=== PATIENT | female | born 1945 | race Caucasian/White ===

== ENCOUNTER 2019-11-26 07:26 | Day surgery (SDC) | payer OTHER ==
--- OUTSIDE RECORDS SUMMARY | 2019-11-26 07:29 | XMS REPORT | Clinical Summary ---
:1945 Author Organization [facility] Address [address] [place] [address] Care Team Providers Name Role Phone Asked, Pcp Primary Care Provider Unavailable Allergies No Known Active Allergies Medications Medication Sig Dispensed Refills Start Date End Date Status rosuvastatin (CRESTOR) Take 10 mg by 0 Active 10 MG tablet mouth daily. Active Problems Problem Noted Date Polyp of colon 03/15/2016 Social History Tobacco Use Types Packs/Day Years Used Date Never Smoker Alcohol Use Drinks/Week oz/Week Comments No Sex Assigned at Date Recorded Not on file Last Filed Vital Signs Not on file Plan of Treatment Health Maintenance Due Date Last Done Comments BREAST CANCER SCREENING 1996 COLONOSCOPY SCREENING 1996 SHINGLES VACCINES (#1) 1996 65+ PNEUMOCOCCAL VACCINE (1 of 1 - PPSV23) 05/22/2011 INFLUENZA VACCINE 09/18/2019 Results Not on fileafter 11/25/2018 Insurance Payer Benefit Plan / Subscriber ID Effective Phone Address T ype Group Dates MEDICARE MEDICARE PART [id number] 2011-Dimas Mueller X Medicare A AND B nt M[employer] OF [employer] OF [id number] 2015-Pres James REEDER ent Advance Directives For more information, please contact: [phone] Type Date 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
[2019-11-26] MEDS ORDERED: KETOROLAC 30 MG/ML INJ ONE (07:45)
[2019-11-26] MEDS ORDERED: LIDOCAINE 2% MPF 5 ML VIAL ONE (07:45)
[2019-11-26] MEDS ORDERED: ONDANSETRON 4 MG/2 ML VIAL ONE (07:45)
[2019-11-26] MEDS ORDERED: propofoL 200 MG/20 ML VIAL IV ONE (07:45)
[2019-11-26] MEDS ORDERED: FENTANYL CITR 100 MCG/2 ML ONE (07:45)
[2019-11-26] MEDS ORDERED: dexAMETHasone 4 MG/ML VIAL ONE (07:46)
[2019-11-26] MEDS ORDERED: ROCURONIUM 50 MG/5 ML VIAL IV ONE (07:46)
[2019-11-26] MEDS ORDERED: GLYCOPYRROLATE 0.2 MG/ML SYR ONE ×2 (07:46→10:39)
[2019-11-26] MEDS: BUPIVACA 0.25%/EPI 0.0005% MDV 50 ML VIAL ONE ×2 (07:50→08:27)
[2019-11-26] MEDS: Ringers Lactate 1,000 ML IV ONE ×2 (07:50→08:02)
[2019-11-26] MEDS ORDERED: CEFAZOLIN/SWI 1gm 1 GM/10 ML SYR ONE (08:29)
[2019-11-26] MEDS ORDERED: EPHEDRINE SULF 50 MG/ML VIAL ONE (09:08)
--- NOTE | 2019-11-26 10:38 | P.OP ---
Preoperative diagnosis: Multiple Ventral Abdominal Wall hernias Postoperative diagnosis: Multiple Ventral Abdominal Wall hernias Primary procedure: Laparosocopic Ventral Hernia Repair with mesh Secondary procedure: Laparoscopic Adhesiolysis Other procedure(s): Laparoscopic suture repair of hernias Anesthesia: GETA + Local Estimated blood loss: <5cc Specimen: None Findings: 3 Ventral abdominal wall hernias - epigastric, supra / infra-umbilical Complications: None Implants: 4.5" round, 6x8" oval Bard Ventralite ST mesh with echo Transferred to: Recovery Room Condition: Good
[2019-11-26] MEDS ORDERED: NEOSTIGMINE 1 MG/ML -5 ML ONE (10:41)
[2019-11-26] MEDS ORDERED: PROMETHAZINE INJ 25 MG/ML AMP ONE (11:08)
[2019-11-26] MEDS: HYDROMORPHONE HCL 1 MG/ML INJ ONE ×2 (11:10→11:15)
--- NOTE | 2019-11-26 11:48 | OP ---
Date of Procedure: 11/26/2019 Surgeon: James Dejesus MD, Preoperative Diagnosis: Multiple ventral abdominal wall incisional hernias. Postoperative Diagnosis: Multiple ventral abdominal wall incisional hernias. Procedure Performed: 1.Laparoscopic ventral hernia repair with mesh. 2.Laparoscopic adhesiolysis. 3.Laparoscopic suture repair of hernias. Estimated Blood Loss: Less than 5 mL. Anesthesia: General endotracheal plus local with 0.5% Marcaine with epinephrine. Specimen: None. Findings: Three ventral abdominal wall hernias epigastric, supraumbilical and infraumbilical. The s upra and infraumbilical were approximately 4 cm in size each round with a bridge between them at the level of the umbilicus. The epigastric was approximately 3 cm in size as well, which was quite far a way from the infraumbilical and supraumbilical hernias. Complications: None. Implants: Two mesh were used. A 4.[address] mesh with Echo Positioning System as well as 6 inch x [address] mesh with Echo Positioning System. Disposition: The patient transferred to recovery room in good condition. Procedure In Detail: After informed consent was obtained, the patient was brought to the operating r oom, prepped and draped in the usual sterile fashion. After adequate anesthesia achieved, an area of the right upper quadrant was anesthetized with 0.25% Marcaine, sharply incised. A 5 mm 0-degree opt ical trocar was introduced without any evidence of complication. Insufflation was obtained 15 mmHg a t this time. There was no injury to vital structures upon entry in the abdomen. I then inspected th e abdomen this point and found that there were no intestinal contents within the two supra and infrau mbilical hernias, but there was adipose tissue and omentum entrapped within the epigastric hernia. U sing the LigaSure device, was brought on the field. I then placed 2 additional trocars, 1 in the lef t lower quadrant, 1 in the left upper quadrant under direct visualization without evidence of complic ation. The additional trocars were 5 mm in the left upper quadrant and a 12 mm under left lower quad rant. After appropriately anesthetizing, these were placed under direct visualization without eviden ce of complication. A ratcheted grasper was used to grasp the patient's epigastric hernia and adipos e tissue and careful dissection was performed using the LigaSure device to remove a large amount of a dipose tissue from this hernia. It was distracted along with a good vascular supply. After the cat ia sac was taken down, the omentum and abdominal contents were returned to the normal anatomic positi on. The 3 hernias were inspected and found to have quite clean edges at this point. I brought in an Endo Stitch at this point and suture closed all 3 defects using a 0 V-Loc suture with the Endo stitc h in a running fashion with good apposition of the tissue. After this was closed, I sized the mesh a ppropriately and brought the 6 inch x [address] mesh, positioned it centrally of t he supra and infraumbilical defects, as the largest mesh we had would not reach to cover the entire a ll 3 defects as such I opted to use 2 meshes. After the 6 inch x 8 inch mesh was positioned centrall y, I used the SorbaFix absorbable fixation tack system to create a double crown in the area and the m esh was in good apposition to the abdominal wall. I then sized the epigastric hernia appropriately a nd brought in a 4.5 cm round Bard Ventralight mesh and using the same type central location of the me sh, I positioned using the Echo Positioning System and circumferentially used a double crown method t o secured to the anterior abdominal wall with good apposition of tissues. There was overlap between the 2 meshes and the absorbable fixation tacks had good puncture through both of these, but I used a double crown secured method to ensure that there was good purchase of tissue for the fixation. After this was performed, the area was inspected. Good hemostasis was achieved without any additional hem ostatic maneuvers. The patient was positioned in the left side up position and the umbilical trocar was removed. The umbilical trocar site was closed using 0 Vicryl in interrupted fashion with a Eyad contreras-Issac suture passer with good approximation of tissues. I then completely desufflated the abdom en under direct visualization without evidence of complication and removed the remaining trocars. Al l skin incisions were copiously irrigated and closed with 4-0 Monocryl in a running fashion. Dermabon d placed over top. The patient tolerated the procedure well without any evidence of complication, tr ansferred to PACU in good condition. All counts were correct at the end of the case. TK/MODL Voice ID: [id number] Report ID: [id number]
[2019-11-26] MEDS ORDERED: HYDROCODONE/APAP 5/325 MG TAB ONE (12:09)
[2019-11-26 12:26] VITALS: TEMP 97.8
[2019-11-26 12:56] VITALS: BP 116/64; O2SAT 95
== END 2019-11-26 13:00 | disposition home or self-care (01) ==
LOC: OR 07:26
PROVIDERS: ATTEND Surgery
PROC: 0WUF4JZ Supplement Abdominal Wall with Synthetic Substitute, Percutaneous Endoscopic Approach (ICD-10-PCS; 2019-11-26)
PROC: 0WUF4JZ Supplement Abdominal Wall with Synthetic Substitute, Percutaneous Endoscopic Approach (ICD-10-PCS; principal; 2019-11-26 08:30)
DX: K42.9 Umbilical hernia without obstruction or gangrene (principal); Z20.828 Contact with and (suspected) exposure to other viral communicable diseases
CPT/HCPCS: 49654 ×2; U0002; J2704; J1100; J2550; J3010; J1170; J2710; J0690; J7120; J2405; C1781

== ENCOUNTER 2021-12-04 14:25 | Inpatient (IN) | payer OTHER ==
--- OUTSIDE RECORDS SUMMARY | 2021-12-04 14:28 | XMS REPORT | Continuity of Care Document ---
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 Social History Social Habit Start Date Stop Date Quantity Comments Source Alcohol intake 2015-12-26 2015-12-26 Current [facility] 00[facility] 00:00:00 non-drinker of Hospital alcohol (finding) Sex Assigned At [birth year] [facility] Smoking Status Start Date Stop Date Source Never smoked tobacco [facility] Medications Ordered Filled Start Stop Current Ordering Indication Dosage Frequency Signature Comments Components Source Medication Medication Date Date Medication? Clinician (SIG) Name Name rosuvastati 2015-02 Yes 10mg QD Take 10 mg [facility] (CRESTOR) 02-[address] 10 MG 16:01: daily. Hospita tablet 49 l Procedures This patient has no known procedures. Plan of Care Planned Activity Planned Date Details Comments Source Future Scheduled 2021-12-04 INFLUENZA VACCINE [facility] Test 14:28:12 [code = INFLUENZA VACCINE] Future Scheduled 2021-12-04 HEPATITIS B VACCINES Met [facility] Test 14:28:12 (1 of 3 - 3-dose series) [code = HEPATITIS B VACCINES (1 of 3 - 3-dose series)] Future Scheduled 2021-12-04 COVID-19 VACCINE (#1) [facility] Test 14:28:12 [code = COVID-19 VACCINE (#1)] Future Scheduled 2021-12-04 BREAST CANCER [facility] Test 14:28:12 SCREENING [code = BREAST CANCER SCREENING] Future Scheduled 2021-12-04 COLONOSCOPY SCREENING [facility] Test 14:28:12 [code = COLONOSCOPY SCREENING] Future Scheduled 2021-12-04 SHINGLES VACCINES (1 Met [facility] Test 14:28:12 of 2) [code = SHINGLES VACCINES (1 of 2)] Future Scheduled 2021-12-[address] 65[address] [facility] Test 14:28:12 VACCINE (1 - PCV) [code = 65+ PNEUMOCOCCAL VACCINE (1 - PCV)] Encounters Start End Encounter Admission Attending Care Care Encounter Source Date/Time Date/Time Type Type Clinicians Facility Department ID 2021-03-14 Outpatient [facility], [facility] [id number] Common 13:47:47 Zackery [id number] [facility] 2021-03-14 Outpatient [facility], [facility] [id number] Common 13:20:42 Zackery [id number] [facility] 2021-03-14 Outpatient [facility], [facility] [id number] Common 12:39:57 Zackery [id number] [facility] Results This patient has no known results.
[2021-12-04 15:37] LABS: Urine Blood 3+ (Negative); Urine Glucose Negative (Negative); Urine Protein 2+ (Negative); Urine Specific Gravity 1.025 (1.005-1.030)
[2021-12-04 15:40] LABS: Absolute Lymphocytes (CBC) 0.6 K/uL (0.7-4.9); Lymphocytes % 4.5 % (15.3-44.8); MCV 86.7 fL (80-100); MPV 8.2 fL (7.6-11.3); RBC Red Blood Cell Count 4.73 M/uL (3.86-4.86)
[2021-12-04 15:41] LABS: Protime INR 1.02
[2021-12-04 15:56] LABS: Albumin 3.9 g/dL (3.4-5.0); Bilirubin Direct 0.2 mg/dL (0-0.2); Bilirubin Total 0.8 mg/dL (0.2-1.0); Potassium 3.7 mmol/L (3.5-5.1); Protein, Total 7.4 g/dL (6.4-8.2); Troponin High Sensitivity 6.9 pg/mL (<58.9)
[2021-12-04] MEDS ORDERED: CEFTRIAXONE 1000 MG/VIAL ONE ×2 (16:00→17:24)
[2021-12-04] MEDS ORDERED: NA CHLORIDE 0.9% 1,000 ML ONE (16:00)
[2021-12-04 16:05] LABS: Urine Bacteria <20 /HPF (<20); Urine Crystals Unidentified Few /HPF (None Seen); Urine Mucus 2+ /HPF (None Seen); Urine RBC >50 /HPF (None Seen); Urine WBC Clump Rare /HPF (None Seen)
[2021-12-04 16:08] LABS: SARS-CoV-2 Antigen Rapid Res Negative (Negative)
--- NOTE | 2021-12-04 17:03 | RAD REPORT ---
EXAM DESCRIPTION: CT - Chest Abdomen Pelvis W Cont - 12/04/2021 4:36 pm CLINICAL HISTORY: Chest and abdominal pain COMPARISON: CT abdomen 2019 TECHNIQUE: Computed axial tomography of the chest, abdomen and pelvis was obtained. 100 cc Isovue-30 0 was administered intravenously. Oral contrast was not requested. This limits evaluation of bowel. All CT scans are performed using dose optimization technique as appropriate and may include automated exposure control or mA/KV adjustment according to patient size. FINDINGS: Lungs are clear. No mediastinal or hilar lymphadenopathy. No pleural effusion. A pericardial effusion is not present The liver, spleen, pancreas, adrenals and right kidney appear unremarkable 25 millimeter calculus left renal pelvis. 3 centimeter low to intermediate density area lower pole le ft kidney probably pyelonephritis. Minimal hydronephrosis No evidence of diverticulitis. A ventral hernia repair. Within the mid pelvis to the left of midline is a 4.2 x 3 centimeter fluid-filled structure. This is at the site of prior ventral hernia repair. No adnexal mass. Small hiatal hernia IMPRESSION: 25 millimeter left renal pelvis calculus with minimal left hydronephrosis 3 centimeter low to intermediate density area left kidney probably pyelonephritis 4.2 x 3 centimeter fluid-filled structure mid pelvis to the left of midline. It is uncertain whether this represents a loop of dilated small bowel protruding through a ventral hernia or a fluid collecti on such as chronic hematoma. A a CT scan with oral contrast and opacification of the small bowel woul d be helpful to distinguish between the 2.
--- NOTE | 2021-12-04 17:05 | RAD REPORT ---
EXAM DESCRIPTION: Saqib Single View12/04/2021 3:23 pm CLINICAL HISTORY: Cough COMPARISON: 2015 FINDINGS: The lungs appear clear of acute infiltrate. The heart is normal size IMPRESSION: No acute abnormalities displayed
--- NOTE | 2021-12-04 17:19 | ER ---
Nurse's Notes [facility] Name: Arlene Braga Age: 76 yrs Sex: Female : 1945 Arrival Date: 12/04/2021 Time: 14:28 Bed 28 Private MD: Zackery Goyal Diagnosis: Pyelonephritis acute;Fever, unspecified;Hydronephrosis with renal and ureteral calculous obstruction-INTERMITTENT, 25 MM LEFT RENAL PELVIS CALCULUS WITH MINIMAL HYDRO;Obesity, unspecified Presentation: 12/04 14:36 Chief complaint: Patient states: Abd cramping, nausea, and constipation for 1 day. ll1 Coronavirus screen: Vaccine status: Patient reports receiving the 1st dose of the Covid vaccine. Client denies travel out of the [place] in the last 14 days. At this time, the client does not indicate any symptoms associated with coronavirus-19. Ebola Screen: Patient denies travel to an Ebola-affected area in the 21 days before illness onset. Initial Sepsis Screen: Does the patient meet any 2 criteria? No. Patient's initial sepsis screen is negative. Does the patient have a suspected source of infection? Yes: Acute abdominal pain. Risk Assessment: Do you want to hurt yourself or someone else? Patient reports no desire to harm self or others. Onset of symptoms was December 04, 2021. 14:36 Method Of Arrival: Ambulatory [facility] 14:36 Acuity: DANIEL 3 ll1 Triage Assessment: 14:38 General: Appears uncomfortable, Behavior is cooperative, appropriate for age. Pain: 1 Complains of pain in abdomen Pain currently is 10 out of 10 on a pain scale. GI: Reports lower abdominal pain, upper abdominal pain, constipation, cramping, nausea. Historical: - Allergies: 14:36 No Known Allergies; ll1 - PMHx: 14:36 Glaucoma; Hyperlipidemia; ll1 - PSHx: 14:36 section; Appendectomy; colon SX; ll1 - Immunization history:: Client reports receiving the 1st dose of the Covid vaccine. - Social history:: Smoking status: Patient denies any tobacco usage or history of. Screenin:18 Abuse screen: Denies threats or abuse. Nutritional screening: No deficits noted. em6 Tuberculosis screening: No symptoms or risk factors identified. Fall Risk IV access (20 points). Total Elizabeth Fall Scale indicates No Risk (0-24 pts). Assessment: 16:17 General: Appears in no apparent distress. Behavior is cooperative. Pain: Complains of em6 pain in abdomen Pain radiates to back Pain currently is 10 out of 10 on a pain scale. Quality of pain is described as crampy, sharp, Pain began 1 day ago. Neuro: Level of Consciousness is awake, alert, obeys commands, Oriented to person, place, time, situation, Reports headache frontal area. Cardiovascular: Patient's skin is warm and dry. Rhythm is sinus rhythm. Respiratory: Airway is patent Respiratory effort is even, unlabored, Respiratory pattern is regular, symmetrical. GI: Abdomen is non-distended, Bowel sounds present X 4 quads. Abd is soft and non tender X 4 quads. Reports constipation. : No signs and/or symptoms were reported regarding the genitourinary system. EENT: No signs and/or symptoms were reported regarding the EENT system. Derm: No signs and/or symptoms reported regarding the dermatologic system. Musculoskeletal: Circulation, motion, and sensation intact. 17:30 Reassessment: provider notified of pain. new order given. Pain: Complains of pain in em6 abdomen and left lower quadrant and anterior aspect of left lateral abdomen and posterior aspect of left lateral abdomen Pain currently is 7 out of 10 on a pain scale. Neuro: Reports headache frontal area. Neuro: Level of Consciousness is awake, alert, obeys commands, Oriented to person, place, time, situation. 18:30 Reassessment: Patient and/or family updated on plan of care and expected duration. Pain em6 level reassessed. Patient is alert, oriented x 3, equal unlabored respirations, skin warm/dry/pink. Patient states symptoms have improved. 19:30 Reassessment: No changes from previously documented assessment. Patient and/or family em6 updated on plan of care and expected duration. Pain level reassessed. Patient is alert, oriented x 3, equal unlabored respirations, skin warm/dry/pink. 20:30 Reassessment: No changes from previously documented assessment. Patient and/or family em6 updated on plan of care and expected duration. Pain level reassessed. Patient is alert, oriented x 3, equal unlabored respirations, skin warm/dry/pink. 21:30 Reassessment: No changes from previously documented assessment. Patient and/or family em6 updated on plan of care and expected duration. Pain level reassessed. Patient is alert, oriented x 3, equal unlabored respirations, skin warm/dry/pink. 22:30 Reassessment: No changes from previously documented assessment. Patient and/or family em6 updated on plan of care and expected duration. Pain level reassessed. Patient is alert, oriented x 3, equal unlabored respirations, skin warm/dry/pink. Vital Signs: 14:36 BP 160 / 80; Pulse 94; Resp 17; Temp 99.5; Pulse Ox 97% on R/A; Weight 72.57 kg; Height ll1 5 ft. 1 in. (154.94 cm); Pain 10/10; 17:00 BP 123 / 58; Pulse 88; Resp 18; Pulse Ox 100% on R/A; em6 18:00 BP 110 / 66; Pulse 89; Resp 16; Pulse Ox 94% on R/A; em6 19:00 BP 96 / 54; Pulse 85; Resp 16; Pulse Ox 94% on R/A; em6 20:00 BP 116 / 54; Pulse 81; Resp 20; Pulse Ox 96% on R/A; em6 21:00 BP 95 / 64; Pulse 77; Resp 20; Pulse Ox 94% on R/A; em6 22:00 BP 100 / 57; Pulse 79; Resp 19; Pulse Ox 95% on R/A; em6 14:36 Body Mass Index 30.23 (72.57 kg, 154.94 cm) ll1 ED Course: 14:28 Patient arrived in ED. am2 14:28 Zackery Goyal DO is Private Physician. am2 14:32 Rodney Castle MD is Attending Physician. lynn 14:38 Triage completed. ll1 14:38 Arm band placed on. ll1 15:25 XRAY Chest (1 view) In Process Unspecified. EDMS 15:53 Corinne Frias, RN is Primary Nurse. em6 16:19 Placed in gown. Bed in low position. Call light in reach. Side rails up X2. Cardiac em6 monitor on. Pulse ox on. NIBP on. Warm blanket given. 16:25 Blood Culture Adult (2) Sent. em6 16:25 Lactate Sent. em6 16:47 Chest Abdomen Pelvis W Cont In Process Unspecified. EDMS 17:14 Sammy Porter is Hospitalizing Provider. lynn 22:58 No provider procedures requiring assistance completed. Patient admitted, IV remains in em6 place. Administered Medications: 16:16 Drug: NS 0.9% 1000 ml Route: IV; Rate: 125 ml/hr; Site: right antecubital; em6 20:30 Follow up: Response: No adverse reaction; IV Status: Order to discontinue infusion; IV em6 Intake: 400ml 16:16 Drug: Rocephin (cefTRIAXone) 1 grams Route: IV; Rate: per protocol; Site: right em6 antecubital; 16:58 Follow up: Response: No adverse reaction em6 17:00 Follow up: Response: No adverse reaction; IV Status: Completed infusion; IV Intake: [id number] 16:16 Drug: NS 0.9% 1000 ml Route: IV; Rate: 1 bolus; Site: right antecubital; em6 18:00 Follow up: Response: No adverse reaction; IV Status: Infusion continued; IV Intake: em6 1000ml 17:48 Drug: Tylenol 1000 mg Route: PO; em6 18:20 Follow up: Response: No adverse reaction em6 17:49 Drug: Rocephin (cefTRIAXone) 1 grams Route: IV; Rate: per protocol; Site: right em6 antecubital; 18:20 Follow up: Response: No adverse reaction; IV Status: Completed infusion; IV Intake: [id number] 17:49 Drug: levofloxacin 750 mg Volume: 150 ml; Route: IVPB; Infused Over: 90 mins; Site: em6 right antecubital; 19:18 Follow up: Response: No adverse reaction; IV Status: Completed infusion; IV Intake: em6 150ml 17:49 Drug: Ketorolac 15 mg Route: IVP; Site: right antecubital; em6 18:20 Follow up: Response: No adverse reaction em6 17:49 Drug: morphine 4 mg Route: IVP; Infused Over: 4 mins; Site: right antecubital; em6 18:20 Follow up: Response: No adverse reaction; RASS: Alert and Calm (0) em6 17:49 Drug: Zofran (Ondansetron) 4 mg Route: IVP; Site: right antecubital; em6 18:20 Follow up: Response: No adverse reaction em6 21:34 Not Given (Physician Discretion): NS 0.9% 1000 ml IV at 1 bolus Per protocol; 1000 mL em6 bolus Medication: 23:00 VIS not applicable for this client. em6 Intake: 17:00 IV: 10ml; Total: 10ml. em6 18:00 IV: 1000ml; Total: 1010ml. em6 18:20 IV: 10ml; Total: 1020ml. em6 19:18 IV: 150ml; Total: 1170ml. em6 20:30 IV: 400ml; Total: 1570ml. em6 Outcome: 17:19 Decision to Hospitalize by Provider. lynn 23:00 Admitted to Tele accompanied by nurse, via stretcher, room 411, Report called to [facility] luciano 23:00 Condition: stable 23:00 Instructed on the need for admit, Demonstrated understanding of instructions. 23:01 Patient left the ED. em6 Signatures: Dispatcher [employer] EDMS Rodney Castle MD MD cha Moreno, Amanda am2 Anjel Snow RN RN ll1 Corinne Frias RN RN em6 Corrections: (The following items were deleted from the chart) 21:49 17:20 Reassessment: No changes from previously documented assessment. Patient and/or em6 family updated on plan of care and expected duration. Pain level reassessed. Patient is alert, oriented x 3, equal unlabored respirations, skin warm/dry/pink. em6
--- NOTE | 2021-12-04 17:20 | EDPHYS ---
Physician Documentation [facility] Name: Arlene Braga Age: 76 yrs Sex: Female : 1945 Arrival Date: 12/04/2021 Time: 14:28 Bed 28 Private MD: [facility] ED Physician Rodney Castle HPI: 12/04 17:09 This 76 yrs old Female presents to ER via Ambulatory with complaints of lynn Abdominal Cramping, Low Back Pain, Nausea. Historical: - Allergies: 14:36 No Known Allergies; ll1 - PMHx: 14:36 Glaucoma; Hyperlipidemia; ll1 - PSHx: 14:36 section; Appendectomy; colon SX; ll1 - Immunization history:: Client reports receiving the 1st dose of the Covid vaccine. - Social history:: Smoking status: Patient denies any tobacco usage or history of. ROS: 17:10 Constitutional: Negative for fever, chills, and weight loss, Eyes: Negative for injury, lynn pain, redness, and discharge, ENT: Negative for injury, pain, and discharge, Neck: Negative for injury, pain, and swelling, Cardiovascular: Negative for chest pain, palpitations, and edema, Respiratory: Negative for shortness of breath, cough, wheezing, and pleuritic chest pain, Abdomen/GI: Negative for abdominal pain, nausea, vomiting, diarrhea, and constipation, MS/Extremity: Negative for injury and deformity, Skin: Negative for injury, rash, and discoloration, Neuro: Negative for headache, weakness, numbness, tingling, and seizure, Psych: Negative for depression, anxiety, suicide ideation, homicidal ideation, and hallucinations, Allergy/Immunology: Negative for hives, rash, and allergies, Endocrine: Negative for neck swelling, polydipsia, polyuria, polyphagia, and marked weight changes, Hematologic/Lymphatic: Negative for swollen nodes, abnormal bleeding, and unusual bruising. 17:10 Back: Positive for flank pain, on the left. Exam: 17:10 Constitutional: This is a well developed, well nourished patient who is awake, alert, lynn and in no acute distress. Head/Face: Normocephalic, atraumatic. Eyes: Pupils equal round and reactive to light, extra-ocular motions intact. Lids and lashes normal. Conjunctiva and sclera are non-icteric and not injected. Cornea within normal limits. Periorbital areas with no swelling, redness, or edema. ENT: Nares patent. No nasal discharge, no septal abnormalities noted. Tympanic membranes are normal and external auditory canals are clear. Oropharynx with no redness, swelling, or masses, exudates, or evidence of obstruction, uvula midline. Mucous membranes moist. Neck: Trachea midline, no thyromegaly or masses palpated, and no cervical lymphadenopathy. Supple, full range of motion without nuchal rigidity, or vertebral point tenderness. No Meningismus. Chest/axilla: Normal chest wall appearance and motion. Nontender with no deformity. No lesions are appreciated. Cardiovascular: Regular rate and rhythm with a normal S1 and S2. No gallops, murmurs, or rubs. Normal PMI, no JVD. No pulse deficits. Respiratory: Lungs have equal breath sounds bilaterally, clear to auscultation and percussion. No rales, rhonchi or wheezes noted. No increased work of breathing, no retractions or nasal flaring. Female : Normal external genitalia. Skin: Warm, dry with normal turgor. Normal color with no rashes, no lesions, and no evidence of cellulitis. MS/ Extremity: Pulses equal, no cyanosis. Neurovascular intact. Full, normal range of motion. Neuro: Awake and alert, GCS 15, oriented to person, place, time, and situation. Cranial nerves II-XII grossly intact. Motor strength 5/5 in all extremities. Sensory grossly intact. Cerebellar exam normal. Normal gait. Psych: Awake, alert, with orientation to person, place and time. Behavior, mood, and affect are within normal limits. 17:10 ECG was reviewed by the Attending Physician. 17:10 Abdomen/GI: Inspection: abdomen appears normal, Bowel sounds: normal, Palpation: mild abdominal tenderness, in the suprapubic area, posterior aspect of left lateral abdomen, anterior aspect of left lateral abdomen and left lower quadrant, Liver: no appreciated palpable abnormalities, Hernia: not appreciated. 17:10 Back: pain, is absent, ROM is normal, normal spinal alignment noted, CVA tenderness, that is mild, that is moderate, is noted on the left. Vital Signs: 14:36 BP 160 / 80; Pulse 94; Resp 17; Temp 99.5; Pulse Ox 97% on R/A; Weight 72.57 kg; Height ll1 5 ft. 1 in. (154.94 cm); Pain 10/10; 17:00 BP 123 / 58; Pulse 88; Resp 18; Pulse Ox 100% on R/A; em6 18:00 BP 110 / 66; Pulse 89; Resp 16; Pulse Ox 94% on R/A; em6 19:00 BP 96 / 54; Pulse 85; Resp 16; Pulse Ox 94% on R/A; em6 20:00 BP 116 / 54; Pulse 81; Resp 20; Pulse Ox 96% on R/A; em6 21:00 BP 95 / 64; Pulse 77; Resp 20; Pulse Ox 94% on R/A; em6 22:00 BP 100 / 57; Pulse 79; Resp 19; Pulse Ox 95% on R/A; em6 14:36 Body Mass Index 30.23 (72.57 kg, 154.94 cm) ll1 MDM: 14:33 Patient medically screened. lynn 17:13 Differential diagnosis: nephrolithiasis, pyelonephritis, UTI, diverticulitis, lynn pancreatitis, kidney stone, nonspecific abdominal pain, urinary tract infection, diverticulitis, Mesenteric ischemia or infarction, non-specific abd pain, pancreatitis, Peptic Ulcer Disease, Perf. Duodenal Ulcer. Data reviewed: vital signs, nurses notes, lab test result(s), EKG, radiologic studies, CT scan, plain films. Data interpreted: quality assurance monitor: rate is 94 beats/min, rhythm is regular, Pulse oximetry: on room air is 97 %. Test interpretation: by ED physician or midlevel provider: ECG, plain radiologic studies. Counseling: I had a detailed discussion with the patient and/or guardian regarding: the historical points, exam findings, and any diagnostic results supporting the discharge/admit diagnosis, lab results, radiology results, the need for further work-up and treatment in the hospital. 12/04 14:35 Order name: Basic Metabolic Panel; Complete Time: 17: lynn 12/04 14:35 Order name: CBC with Diff; Complete Time: 17: lynn 12/04 14:35 Order name: LFT's; Complete Time: 17: lynn 12/04 14:35 Order name: Magnesium; Complete Time: 17:12/04 14:35 Order name: NT PRO-BNP; Complete Time: 17: lynn 12/04 14:35 Order name: PT-INR; Complete Time: 17:02 [facility] 12/04 14:35 Order name: Troponin HS; Complete Time: 17:02 [facility] 12/04 14:35 Order name: Lipase; Complete Time: 17:02 [facility] 12/04 14:35 Order name: Urine Culture [facility] 12/04 14:35 Order name: SARS RAPID; Complete Time: 17:02 [facility] 12/04 15:37 Order name: Urine Microscopic Only; Complete Time: 17:02 [facility] 12/04 15:38 Order name: Urine Dipstick-Ancillary; Complete Time: 17:02 [facility] 12/04 15:38 Order name: Lactate; Complete Time: 17:02 [facility] 12/04 15:38 Order name: Blood Culture Adult (2) [facility] 12/04 14:35 Order name: XRAY Chest (1 view); Complete Time: 17:08 [facility] 12/04 15:22 Order name: Chest Abdomen Pelvis W Cont; Complete Time: 17:05 [facility] 12/04 19:10 Order name: Phosphorus; Complete Time: 19:16 [facility] 12/04 19:10 Order name: Creatine Phosphokinase; Complete Time: 19:16 [facility] 12/04 14:35 Order name: EKG; Complete Time: 14:36 12/04 14:35 Order name: Cardiac monitoring; Complete Time: 15:37 [facility] 12/04 14:35 Order name: EKG - Nurse/Tech; Complete Time: 15:38 lynn 12/04 14:35 Order name: IV Saline Lock; Complete Time: 15:37 [facility] 12/04 14:35 Order name: Labs collected and sent; Complete Time: 15:37 [facility] 12/04 14:35 Order name: O2 Per Protocol; Complete Time: 15:37 [facility] 12/04 14:35 Order name: O2 Sat Monitoring; Complete Time: 16:25 lynn 12/04 14:35 Order name: Urine Dipstick-Ancillary (obtain specimen); Complete Time: 15:38 [facility] 12/04 18:19 Order name: CONS Physician Consult EDMS EC:10 Rate is 83 beats/min. Rhythm is regular. QRS [place] is Normal. NE interval is normal. QRS lynn interval is normal. QT interval is normal. No Q waves. T waves are Normal. No ST changes noted. Clinical impression: NSR w/ Non-specific ST/T Changes and No evidence of ischemia. Administered Medications: 16:16 Drug: NS 0.9% 1000 ml Route: IV; Rate: 125 ml/hr; Site: right antecubital; em6 20:30 Follow up: Response: No adverse reaction; IV Status: Order to discontinue infusion; IV em6 Intake: 400ml 16:16 Drug: Rocephin (cefTRIAXone) 1 grams Route: IV; Rate: per protocol; Site: right em6 antecubital; 16:58 Follow up: Response: No adverse reaction em6 17:00 Follow up: Response: No adverse reaction; IV Status: Completed infusion; IV Intake: [id number] 16:16 Drug: NS 0.9% 1000 ml Route: IV; Rate: 1 bolus; Site: right antecubital; em6 18:00 Follow up: Response: No adverse reaction; IV Status: Infusion continued; IV Intake: em6 1000ml 17:48 Drug: Tylenol 1000 mg Route: PO; em6 18:20 Follow up: Response: No adverse reaction em6 17:49 Drug: Rocephin (cefTRIAXone) 1 grams Route: IV; Rate: per protocol; Site: right em6 antecubital; 18:20 Follow up: Response: No adverse reaction; IV Status: Completed infusion; IV Intake: [id number] 17:49 Drug: levofloxacin 750 mg Volume: 150 ml; Route: IVPB; Infused Over: 90 mins; Site: em6 right antecubital; 19:18 Follow up: Response: No adverse reaction; IV Status: Completed infusion; IV Intake: em6 150ml 17:49 Drug: Ketorolac 15 mg Route: IVP; Site: right antecubital; em6 18:20 Follow up: Response: No adverse reaction em6 17:49 Drug: morphine 4 mg Route: IVP; Infused Over: 4 mins; Site: right antecubital; em6 18:20 Follow up: Response: No adverse reaction; RASS: Alert and Calm (0) em6 17:49 Drug: Zofran (Ondansetron) 4 mg Route: IVP; Site: right antecubital; em6 18:20 Follow up: Response: No adverse reaction em6 21:34 Not Given (Physician Discretion): NS 0.9% 1000 ml IV at 1 bolus Per protocol; 1000 mL em6 bolus Disposition Summary: 12/04/21 17:19 Hospitalization Ordered Hospitalization Status: Inpatient Admission lynn Provider: Sammy Porter cha Location: Telemetry/MedSurg (Inpatient) lynn Condition: Fair lynn Problem: new lynn Symptoms: have improved lynn Bed/Room Type: Standard lynn Room Assignment: 411(12/04/21 20:31) cg Diagnosis - Pyelonephritis acute lynn - Fever, unspecified lynn - Hydronephrosis with renal and ureteral calculous obstruction - INTERMITTENT, 25 MM lynn LEFT RENAL PELVIS CALCULUS WITH MINIMAL HYDRO - Obesity, unspecified lynn Forms: - Medication Reconciliation Form lynn - SBAR form lynn Signatures: Dispatcher [employer] EDMS Rodney Castle MD MD cha Garcia, Cindy RN RN cg Anjel Snow RN RN ll1 Corinne Frias RN RN em6 Zulma Foreman PA-C PAJennifer sb4 Corrections: (The following items were deleted from the chart) 15:19 15:19 Chest Abd Pelvis Wo Con ordered. EDWY EDWY 20:31 17:19 lynn cg
[2021-12-04] MEDS ORDERED: ONDANSETRON 4 MG/2 ML VIAL ONE (17:24)
[2021-12-04] MEDS ORDERED: MORPHINE 4 MG/ML SYR ONE (17:24)
[2021-12-04] MEDS ORDERED: KETOROLAC 30 MG/ML INJ ONE (17:24)
[2021-12-04] MEDS ORDERED: Levofloxacin 750mg IV 750 MG/150 ML BAG IV ONE (17:25)
[2021-12-04] MEDS ORDERED: ACETAMINOPHEN 500 MG TAB ONE (17:28)
--- NOTE | 2021-12-04 18:36 | P.HP ---
Certification for Inpatient Patient admitted to: Inpatient With expected LOS: >2 Midnights Patient will require the following post-hospital care: None Practitioner: I am a practitioner with admitting privileges, knowledge of patient current condition, hospital course, and medical plan of care. Services: Services provided to patient in accordance with Admission requirements found in Title 42 Section 412.3 of the Code of Federal Regulations Patient History Date of Service: 12/05/21 Reason for admission: Abdominal\flank pain History of Present Illness: Patient is a 76-year-old female with a past medical history significant for glaucoma, hyperlipidemia, obesity who presents with complaint of abdominal pain located in the lower quadrants and suprapubic area onset this morning. Patient rated pain as 10/10 in severity and described pain as cramping in quality. Patient indicated pain radiates to her left flank and low back area. Patient re ported associated signs and symptoms of chills, headache, dizziness, nausea, urinary frequency and fatigue. Patient denies any other signs and symptoms. Symptoms are aggravated or relieved by nothing. Patient decided to present to the hospital due to worsening symptoms. Allergies No Known Allergies Allergy (Verified 12/04/21 23:04) Home Medications: Rosuvastatin [Crestor*] 5 mg PO DAILY 10/10/15 Ascorbic Acid [Vitamin C] 500 mg PO DAILY 11/24/19 Aspirin 81 mg PO DAILY 11/24/19 Cholecalciferol (Vitamin D3) [Vitamin D3] 1,000 unit PO DAILY 11/24/19 Cranberry 500 mg PO BEDTIME 11/24/19 Latanoprost/Pf [Latanoprost 0.005% Eye Drop] 1 gtt EACH EYE BID 11/24/19 Timolol Maleate [Istalol] 1 gtt EACH EYE DAILY 11/24/19 Zinc 50 mg PO DAILY 11/24/19 Vitamin B Complex [Vitamin B Complex*] 1 cap PO DAILY 12/05/21 - Past Medical/Surgical History Diabetic: No -: hyperlipidemia -: glaucoma -: appy -: -: vein stripping -: cateract sx - Social History Smoking Status: Never smoker Alcohol use: No CD- Drugs: No Caffeine use: Yes Place of Residence: Home Review of Systems General: Chills, Other (fatigue) Eyes: Unremarkable ENT: Unremarkable Respiratory: Unremarkable Cardiovascular: Unremarkable Gastrointestinal: Nausea Genitourinary: Frequency Musculoskeletal: Back Pain, Other (Left flank pain ) Integumentary: Unremarkable Neurological: Other (Dizziness, MARTINEZ) Lymphatics: Unremarkable Physical Examination - Physical Exam General: Alert, In no apparent distress, Oriented x3, Cooperative HEENT: Atraumatic, PERRLA, Mucous membr. moist/pink, EOMI, Sclerae nonicteric Neck: Supple, 2+ carotid pulse no bruit, No LAD, Without JVD or thyroid abnormality Respiratory: Clear to auscultation bilaterally, Normal air movement Cardiovascular: No edema, Regular rate/rhythm, Normal S1 S2 Capillary refill: <2 Seconds Gastrointestinal: Normal bowel sounds, No tenderness, Tenderness Musculoskeletal: Tenderness Integumentary: No rashes, No breakdown, No significant lesion, No erythema Neurological: Normal gait, Normal speech, Normal strength at 5/5 x4 extr, Normal tone, Normal affect Lymphatics: No axilla or inguinal lymphadenopathy - Studies Laboratory Data (last 24 hrs) 12/04/21 15:22: PT 11.2, INR 1.02 12/04/21 15:22: WBC 13.50 H, Hgb 13.9, Hct 41.0, Plt Count 214 12/04/21 15:22: Sodium 134 L, Potassium 3.7, BUN 13, Creatinine 0.76, Glucose 116 H, Magnesium 2.0, Total Bilirubin 0.8, AST 15, ALT 23, Alkaline Phosphatase 68, Lipase 56 L Assessment and Plan - Plan --Pyelonephritis\UTI POA. Patient placed on antibiotics. Urine cultures pending. -- Leukocytosis. Blood cultures pending. Continue antibiotics. --Left renal calculus. CT imaging indicates left renal pelvis calculus with minimal left hydronephrosis with additional findings concerning for loop of dilated small bowel protruding through a ventral hernia or a fluid collection such as chronic hematoma. Urologist consulted. Continue IV hydration. Will await further recommendations --HLD. Continue statin --DAVID. Continue home medication --CKD 2. Stable. Continue IV hydration --Leukocytosis. Likely due to UTI. Blood cultures pending. Continue antibiotics. Will re-assess levels in am --Glaucoma. Continue home medications. --Acute Pain. We will manage pain with current pain medication regimen. --DVT prophylaxis with Heparin subQ Plan to discharge in: Greater than 2 days - Advance Directives Does patient have a Living Will: No Does patient have a Durable POA for Healthcare: No - Code Status/Comfort Care Code Status Assessed: Yes Code Status: Full Code Physician Review: Patient Assessed, Agree with Above Assessment and Plan Critical Care: No
[2021-12-04 19:10] LABS: Phosphorus 2.1 mg/dL (2.5-4.9)
[2021-12-04] MEDS: ASPIRIN EC 81 MG TAB PO SCH (20:00)
[2021-12-04] MEDS ORDERED: ASPIRIN EC 81 MG TAB PO ONE (20:50)
[2021-12-04] MEDS ORDERED: HEPARIN 5000 UNIT/ML 1 ML VIAL ONE (20:51)
[2021-12-04] MEDS: HOME MED 1 EA UNK (Latanoprost/Pf [Latanoprost 0.005% Eye Drop] 7.5 ML Drops) OPTH SCH (21:00)
[2021-12-04] MEDS: CRANBERRY FRUIT EXTRACT 200 MG CAP PO SCH ×2 (21:00→23:29)
[2021-12-04] MEDS: HEPARIN 5000 UNIT/ML 1 ML VIAL SQ SCH (21:00)
[2021-12-04] MEDS ORDERED: HOME MED 1 EA UNK (Cranberry [Cranberry] 500 MG Capsule) PO SCH (21:00)
[2021-12-04 23:01] VITALS: BMI 31.0
[2021-12-04] MEDS: HYDROCODONE/APAP 10/325 TAB PO PRN (23:29)
[2021-12-05 03:46] LABS: Absolute Lymphocytes (CBC) 0.7 K/uL (0.7-4.9); Lymphocytes % 6.3 % (15.3-44.8); MCV 87.6 fL (80-100); MPV 8.5 fL (7.6-11.3); RBC Red Blood Cell Count 3.88 M/uL (3.86-4.86)
[2021-12-05 03:54] LABS: Potassium 4.1 mmol/L (3.5-5.1)
[2021-12-05] MEDS: NA CHLORIDE 0.9% 1,000 ML IV SCH ×2 (06:00→20:00)
[2021-12-05] MEDS: ACETAMINOPHEN 325 MG TABLET PO PRN ×2 (07:54→16:29)
[2021-12-05] MEDS ORDERED: HOME MED 1 EA UNK (Ferrous Fumarate/Vit Bcomp&C [Super B-Complex Caplet] 1 EACH Tablet) PO SCH (09:00)
[2021-12-05] MEDS: HOME MED 1 EA UNK (Latanoprost/Pf [Latanoprost 0.005% Eye Drop] 7.5 ML Drops) OPTH SCH ×2 (09:00→21:00)
[2021-12-05] MEDS ORDERED: HOME MED 1 EA UNK (Cholecalciferol (Vitamin D3) [Vitamin D3] 1,000 UNIT Capsule) PO SCH (09:00)
[2021-12-05] MEDS ORDERED: HOME MED 1 EA UNK (Zinc [Zinc] 50 MG Tablet) PO SCH (09:00)
[2021-12-05] MEDS: TIMOLOL MALEATE OPTH SCH (09:00)
[2021-12-05] MEDS: VITAMIN D 1000 UNIT TAB PO SCH (09:23)
[2021-12-05] MEDS: CEFTRIAXONE 1,000 MG in NA CHLORIDE 0.9% 50 ML IVPB SCH (09:23)
[2021-12-05] MEDS: VITAMIN B COMPLEX 1 CAP PO SCH (09:23)
[2021-12-05] MEDS: ASPIRIN EC 81 MG TAB PO SCH (09:23)
[2021-12-05] MEDS: ZINC SULFATE 220 MG CAP PO SCH (09:23)
[2021-12-05] MEDS: ASCORBIC ACID 500 MG TABLET PO SCH (09:23)
[2021-12-05] MEDS: ROSUVASTATIN 10 MG TAB PO SCH (09:26)
[2021-12-05] MEDS: HEPARIN 5000 UNIT/ML 1 ML VIAL SQ SCH ×2 (09:46→22:20)
[2021-12-05] MEDS: HYDROCODONE/APAP 10/325 TAB PO PRN (09:59)
[2021-12-05] MEDS: ONDANSETRON 4 MG/2 ML VIAL IV PRN ×2 (10:00→23:09)
[2021-12-05] MEDS ORDERED: MORPHINE 2 MG/ML SYR IV ONE (10:06)
[2021-12-05] MEDS ORDERED: MORPHINE 2 MG/ML SYR IV PRN (10:15)
--- NOTE | 2021-12-05 14:40 | RAD REPORT ---
EXAM DESCRIPTION: CTAbdomen Pelvis W Contrast - 12/05/2021 2:30 pm CLINICAL HISTORY: Abdominal pain. Fluid filled cyst in the intestine or left kidney COMPARISON: Abdomen Pelvis W Contrast dated 11/23/2019; CT ABD PELVIS W CONTRAST dated 12/26/2013; C hest Abdomen Pelvis W Cont dated 12/04/2021 TECHNIQUE: Biphasic CT imaging of the abdomen and pelvis was performed with 100 ml non-ionic IV cont rast. All CT scans are performed using dose optimization technique as appropriate and may include automated exposure control or mA/KV adjustment according to patient size. FINDINGS: Mild subsegmental atelectasis is present in both lung bases. The liver contains several tiny low-density lesions likely benign cysts. No aggressive liver lesion o r biliary dilatation. Small hiatal hernia. The spleen, pancreas and adrenal glands are normal. Normal right kidney is seen. 15 mm stone left renal pelvis with mild left hydronephrosis. No bowel obstruction, free air, free fluid or abscess. Fluid density lesions seen inferior anterior s ubcutaneous fat again noted measuring 4.4 cm. This does not appear to contain oral contrast material. Nonvisualized appendix. Moderate to large bilateral fat containing inguinal hernias. No evidence of significant lymphadenopathy. Moderate lumbar degenerative changes. IMPRESSION: 4.4 cm fluid density collection anterior abdominal wall fat is present. This does not co ntain oral contrast and thus not likely to communicate with bowel. Exact etiology is difficult to det ermine however does not appear aggressive in nature. Postoperative seroma or lymphocele is possible. 15 mm stone left renal pelvis with mild left hydronephrosis.
--- NOTE | 2021-12-05 14:42 | P.PN ---
Subjective Date of Service: 12/05/21 Chief Complaint: Abdominal\flank pain Patient is complaining of intermittent left flank pain. No fever. Physical Examination - Vital Signs Temperature: 99.6 F Blood Pressure: 119/51 Pulse: 109 Respirations: 16 Pulse Ox (%): 92 - Studies Laboratory Data (last 24 hrs) 12/04/21 15:22: Phosphorus 2.1 L, Magnesium Cancelled 12/04/21 15:22: PT 11.2, INR 1.02 12/04/21 15:22: WBC 13.50 H, Hgb 13.9, Hct 41.0, Plt Count 214 12/04/21 15:22: Sodium 134 L, Potassium 3.7, BUN 13, Creatinine 0.76, Glucose 116 H, Magnesium 2.0, Total Bilirubin 0.8, AST 15, ALT 23, Alkaline Phosphatase 68, Lipase 56 L Assessment And Plan - Current Problems (Diagnosis) (1) Acute pyelonephritis Current Visit: Yes Status: Acute (2) Nephrolithiasis Current Visit: Yes Status: Acute - Plan Physical Exam General: In no apparent distress, awake and alert. Respiratory: Clear to auscultation bilaterally, Normal air movement Cardiovascular: No edema, Regular rate/rhythm, Normal S1 S2 Gastrointestinal: Normal bowel sounds, No tenderness, left CVA Tenderness Integumentary: No rashes, No breakdown, No erythema Neurological: No focal motor deficit Plan Continue aggressive antibiotic therapy. Infectious disease consult Urology consulted to evaluate. Urine culture is growing gram-negative rods. Follow culture. Leukocytosis improved. Blood cultures are pending. Pain management as needed. Repeat CT abdomen and pelvis with oral contrast shows fluid collection within the anterior abdominal wall. It also report bilateral inguinal hernia. Follow-up as outpatient
--- NOTE | 2021-12-05 16:34 | EKG ---
Test Date: 2021-12-04 Test Time: 16:11:29 Refractory Bricklayer: MEASUREMENT RESULTS: Intervals: Rate: 83 MS: 152 QRSD: 78 QT: 360 QTc: 423 Ramsay: P: 57 MS: 152 QRS: 16 T: 4 INTERPRETIVE STATEMENTS: Normal sinus rhythm Nonspecific ST and T wave abnormality Abnormal ECG Compared to ECG 10/16/2015 18:36:31 ST (T wave) deviation now present Left ventricular hypertrophy no longer present T-wave abnormality no longer present Electronically Signed On 12-05-21 16:33:29 CDT by David Stephens
[2021-12-05] MEDS: CRANBERRY FRUIT EXTRACT 200 MG CAP PO SCH (22:20)
[2021-12-05] MEDS ORDERED: ACETAMINOPHEN 500 MG TAB PO ONE (23:18)
[2021-12-05] MEDS: HYDROMORPHONE HCL 1 MG/ML INJ IV ONE ×2 (23:29→23:50)
--- NOTE | 2021-12-06 03:13 | CON ---
History Of Present Illness: This is a 76-year-old female I was consulted for evaluation on managemen t of pyelonephritis. The patient has significant past medical history of glaucoma, hyperlipidemia, m orbid obesity and coming in with abdominal pain in the lower quadrant and suprapubic area. Pain was 10/10, which has improved since then. The patient had pain radiating to the left flank and burning u rination. Denies any chest pain or back pain. Past Medical History: As per HPI. Social History: Nonsmoker, nondrinker. Family History: Noncontributory. Medications: Rocephin. See MAR for other medications. Allergies: NO KNOWN DRUG ALLERGIES. Review of Systems: A 10-point review was performed. Physical Examination: General: This is a 76-year-old female lying in bed, not in any acute cardiopulmonary distress. Husb and by the bedside. Vital Signs: Temperature 98.9, pulse 90, respirations 14, blood pressure 115/67. HEENT: Unremarkable. Neck: Supple. Lungs: Basal crackles. Heart: S1, S2. Regular. Abdomen: Tenderness on the left flank area and lower abdominal quadrants. Extremities: No edema. Laboratory Data: WBC 11.4, hemoglobin 11.7, platelets 181. Sodium 138, potassium 4.1, chloride 106, bicarb 27, BUN 17, creatinine 0.7, glucose 122. Albumin level is 3.9. Urinalysis shows WBC more th an 50. Microbiology data shows urine culture growing more than 100,000 colony of 3+ gram-negative ro ds. Sensitivity specificity pending. Assessment And Plan: A 76-year-old female with left-sided pyelonephritis and urosepsis with leukocyt osis. Anemia of chronic disease. We will continue antibiotic for 14 days, pending culture results. Continue to monitor patient with signs of infection with WBC and fever trend. Thank you Dr. Porter for consult. NF/MODL Voice ID: [id number] Report ID: [id number]
[2021-12-06] MEDS: TIMOLOL MALEATE OPTH SCH (09:00)
[2021-12-06] MEDS: HOME MED 1 EA UNK (Latanoprost/Pf [Latanoprost 0.005% Eye Drop] 7.5 ML Drops) OPTH SCH ×2 (09:00→20:47)
[2021-12-06] MEDS: ROSUVASTATIN 10 MG TAB PO SCH (09:00)
[2021-12-06] MEDS: HEPARIN 5000 UNIT/ML 1 ML VIAL SQ SCH ×2 (09:00→20:47)
[2021-12-06] MEDS: ASPIRIN EC 81 MG TAB PO SCH (09:39)
[2021-12-06] MEDS: VITAMIN D 1000 UNIT TAB PO SCH (09:39)
[2021-12-06] MEDS: CEFTRIAXONE 1,000 MG in NA CHLORIDE 0.9% 50 ML IVPB SCH (09:39)
[2021-12-06] MEDS: ZINC SULFATE 220 MG CAP PO SCH (09:39)
[2021-12-06] MEDS: VITAMIN B COMPLEX 1 CAP PO SCH (09:39)
[2021-12-06] MEDS: NA CHLORIDE 0.9% 1,000 ML IV SCH ×2 (09:39→20:46)
[2021-12-06] MEDS: ASCORBIC ACID 500 MG TABLET PO SCH (09:39)
[2021-12-06] MEDS: ACETAMINOPHEN 325 MG TABLET PO PRN ×2 (12:18→20:46)
--- NOTE | 2021-12-06 14:39 | P.PN ---
Subjective Date of Service: 12/06/21 Chief Complaint: Abdominal\flank pain Patient reports an episode last night when she developed severe respiratory distress. She also reported an episode of shortness of breath yesterday and attributing her symptoms to the Lovenox injections. She states her pain is better today. Physical Examination - Vital Signs Temperature: 97.2 F Blood Pressure: 109/56 Pulse: 76 Respirations: 16 Pulse Ox (%): 97 - Studies Microbiology Data (last 24 hrs): 12/04/21 15:30 Clean Catch Urine Hood Count - Final >100,000 CFU/ML. 12/04/21 15:30 Clean Catch Urine - Final Klebsiella Pneumoniae Assessment And Plan - Current Problems (Diagnosis) (1) Acute pyelonephritis Current Visit: Yes Status: Acute (2) Nephrolithiasis Current Visit: Yes Status: Acute - Plan Physical Exam General: In no apparent distress, awake and alert. Respiratory: Clear to auscultation bilaterally, Normal air movement Cardiovascular: No edema, Regular rate/rhythm, Normal S1 S2 Gastrointestinal: Normal bowel sounds, No tenderness, left CVA Tenderness Integumentary: No rashes, No breakdown, No erythema Neurological: No focal motor deficit Plan Urine culture is growing Klebsiella pneumonia-pansensitive. Continue IV Rocephin Infectious disease consulted Urology consulted to evaluate. Dr. Deshpande is monitoring. Currently no indication for urologic procedure. Urine culture is growing gram-negative rods. Follow culture. Leukocytosis improved. Blood cultures: No growth to date. Pain management as needed. Repeat CT abdomen and pelvis with oral contrast shows fluid collection within the anterior abdominal wall. It also report bilateral inguinal hernia. Follow-up as outpatient. We will continue management her symptoms as inpatient and continue IV antibiotic for 1 more day and transition to oral antibiotics for discharge. Physician Review: Patient Assessed, Agree with Above Assessment and Plan
[2021-12-06] MEDS: HYDROCODONE/APAP 10/325 TAB PO PRN (18:28)
[2021-12-06] MEDS: CRANBERRY FRUIT EXTRACT 200 MG CAP PO SCH (20:46)
[2021-12-07 05:35] LABS: Absolute Lymphocytes (CBC) 0.6 K/uL (0.7-4.9); Hematocrit 30.8 % (36.0-45.0); Lymphocytes % 6.1 % (15.3-44.8); MCV 87.7 fL (80-100); RBC Red Blood Cell Count 3.51 M/uL (3.86-4.86)
[2021-12-07] MEDS: TIMOLOL MALEATE OPTH SCH (09:00)
[2021-12-07] MEDS: HOME MED 1 EA UNK (Latanoprost/Pf [Latanoprost 0.005% Eye Drop] 7.5 ML Drops) OPTH SCH (09:00)
[2021-12-07] MEDS: ACETAMINOPHEN 325 MG TABLET PO PRN (09:23)
[2021-12-07] MEDS: CEFTRIAXONE 1,000 MG in NA CHLORIDE 0.9% 50 ML IVPB SCH (09:23)
[2021-12-07] MEDS: VITAMIN B COMPLEX 1 CAP PO SCH (09:24)
[2021-12-07] MEDS: VITAMIN D 1000 UNIT TAB PO SCH (09:24)
[2021-12-07] MEDS: ZINC SULFATE 220 MG CAP PO SCH (09:24)
[2021-12-07] MEDS: ASPIRIN EC 81 MG TAB PO SCH (09:24)
[2021-12-07] MEDS: ROSUVASTATIN 10 MG TAB PO SCH (09:24)
[2021-12-07] MEDS: ASCORBIC ACID 500 MG TABLET PO SCH (09:24)
[2021-12-07] MEDS: HEPARIN 5000 UNIT/ML 1 ML VIAL SQ SCH (09:24)
[2021-12-07 10:51] VITALS: O2SAT 94
--- NOTE | 2021-12-07 11:10 | P.DS ---
Admission Date: 12/04/21 Discharge Date: 12/07/21 Disposition: ROUTINE DISCHARGE Discharge Condition: FAIR Reason for Admission: Abdominal\flank pain - Problems (1) Acute pyelonephritis Status: Acute (2) Nephrolithiasis Status: Acute Brief History of Present Illness: Patient is a 76-year-old female with a past medical history significant for glaucoma, hyperlipidemia, obesity who presents with complaint of abdominal pain located in the lower quadrants and suprapubic area. Patient rated pain as 10/10 in severity and described pain as cramping in quality. Patient indicated pain radiates to her left flank and low back area. Patient reported associated signs and symptoms of chills, headache, dizziness, nausea, urinary frequency and fatigue. UA suggested the presence of UTI. CT abdomen and pelvis demonstrated left 15 mm renal pelvis stone. Patient admitted for further management. Hospital Course: Patient admitted to the medical floor and started on IV Rocephin. Urine culture is growing Klebsiella pneumonia-pansensitive. Infectious disease consulted who recommended 14 days of antibiotic treatment. Oral ciprofloxacin recommended for outpatient treatment Dr. Deshpande urology followed patient clinical course and recommended no urologic procedure as inpatient. Outpatient follow-up recommended Patient had leukocytosis which resolved. Blood cultures: No growth to date. Pain management as needed. Repeat CT abdomen and pelvis with oral contrast shows fluid collection within the anterior abdominal wall. It also report bilateral inguinal hernia. Follow-up as outpatient. Patient's symptoms have significantly improved. She is currently denying flank pain. She has responded to treatment and deemed stable for discharge. She will follow with Dr. Deshpande as outpatient for further management of the nephrolithiasis. Vital Signs/Physical Exam: Temp Pulse Resp BP Pulse Ox 97.9 F 82 16 173/78 H 96 12/07/21 08:00 12/07/21 08:00 12/07/21 08:00 12/07/21 08:00 12/07/21 08:00 General: Alert, In no apparent distress, Oriented x3 HEENT: Mucous membr. moist/pink Neck: Supple, JVD not distended Respiratory: Clear to auscultation bilaterally, Normal air movement Cardiovascular: No edema, Regular rate/rhythm, Normal S1 S2 Gastrointestinal: Normal bowel sounds, Soft and benign, Non-distended, No te nderness Musculoskeletal: No swelling Integumentary: No rashes, No erythema Neurological: Normal strength at 5/5 x4 extr Laboratory Data at Discharge: WBC 9.70 K/uL (4.3-10.9) 12/07/21 05:07 Hgb 10.4 g/dL (12.0-15.0) L 12/07/21 05:07 Hct 30.8 % (36.0-45.0) L 12/07/21 05:07 Plt Count 125 K/uL (152-406) L 12/07/21 05:07 PT 11.2 SECONDS (9.5-12.5) 12/04/21 15:22 INR 1.02 12/04/21 15:22 Sodium 138 mmol/L (136-145) 12/07/21 05:07 Potassium 4.0 mmol/L (3.5-5.1) 12/07/21 05:07 BUN 16 mg/dL (7-18) 12/07/21 05:07 Creatinine 0.58 mg/dL (0.55-1.3) 12/07/21 05:07 Glucose 108 mg/dL (74-106) H 12/07/21 05:07 Phosphorus 3.0 mg/dL (2.5-4.9) 12/05/21 03:19 Magnesium 2.0 mg/dL (1.8-2.4) 12/04/21 15:22 Magnesium Cancelled 12/04/21 15:22 Total Bilirubin 0.8 mg/dL (0.2-1.0) 12/04/21 15:22 AST 15 U/L (15-37) 12/04/21 15:22 ALT 23 U/L (12-78) 12/04/21 15:22 Alkaline Phosphatase 68 U/L (45-117) 12/04/21 15:22 Lipase 56 U/L (73-393) L 12/04/21 15:22 Home Medications: Rosuvastatin [Crestor*] 5 mg PO DAILY 10/10/15 Ascorbic Acid [Vitamin C*] 500 mg PO DAILY 11/24/19 Aspirin 81 mg PO DAILY 11/24/19 Cholecalciferol (Vitamin D3) [Vitamin D3] 1,000 unit PO DAILY 11/24/19 Cranberry 500 mg PO BEDTIME 11/24/19 Latanoprost/Pf [Latanoprost 0.005% Eye Drop] 1 gtt EACH EYE BID 11/24/19 Timolol Maleate [Istalol] 1 gtt EACH EYE DAILY 11/24/19 Zinc 50 mg PO DAILY 11/24/19 Vitamin B Complex [Vitamin B Complex*] 1 cap PO DAILY 12/05/21 Ciprofloxacin HCl [Cipro] 500 mg PO BID #22 tab 12/07/21 Hydrocodone 5/APAP 325 [[place] 5/325] 1 tab PO Q6H PRN #15 tab 12/07/21 New Medications: Ciprofloxacin HCl [Cipro] 500 mg PO BID #22 tab Hydrocodone 5/APAP 325 [[place] 5/325] 1 tab PO Q6H PRN #15 tab PRN Reason: Pain Followup: Zackery Goyal DO [Primary Care Provider] - 1 Week (Patient neeed repeat CBC within 2 weeks.) Norberto Deshpande [ACTIVE - CAN ADMIT] - 1-2 Weeks Time spent managing pt's care (in minutes): 38
[2021-12-07 13:55] VITALS: BP 165/72; TEMP 98.1
--- NOTE | 2021-12-07 14:44 | PN ---
Subjective: Patient is lying in bed. No new acute event. Denies any chest pain, abdominal pain, co nstipation, diarrhea. is by the bedside. Objective: Vital Signs: Temperature 97.9, pulse 82, respirations 16, blood pressure 173/79. Lungs: Basal crackles. Heart: S1, S2. Regular. Abdomen: Soft, nontender. Bowel sounds present. Extremities: No edema. Laboratory Data: Shows WBC 9.7, hemoglobin 10.4, platelets are 125. Micro data: E coli growing in urine culture. Klebsiella pneumoniae growing in urine culture, sensitive to quinolones and DICTATION ENDS HERE. NF/MODL Voice ID: [id number] Report ID: [id number]
--- NOTE | 2021-12-07 14:53 | PN ---
Subjective: Patient is lying in bed, not in any acute distress. Denies any chest pain, abdominal pa in, constipation, or diarrhea. Objective: Vital Signs: Temperature 97, pulse 82, respirations 16, blood pressure 173/78, Lungs: Clear to auscultation. Heart: S1, S2. Regular. Abdomen: Soft, nontender. Bowel sounds present. Extremities: No edema. Laboratory Data: Shows WBC 9.7, hemoglobin 10.4, platelets 125. BUN 16, creatinine 0.5. Urine cult ures are growing Klebsiella pneumonia. Currently, patient is on Rocephin. Assessment And Plan: Pyelonephritis. To continue antibiotic for 14 days. Consider stopping Rocephi n and switching to Cipro as patient's platelets have decreased and Klebsiella pneumonia is showing se nsitivity to Cipro. We will recommend 500 mg twice a day for total course of 14 days. Anemia of chr onic disease. Leukocytosis has resolved. Thrombocytopenia most likely secondary to antibiotics. Re commend to repeat CBC as a followup with primary care doctor. Continue to monitor signs of infection with WBC and fever trends. We will follow the patient as needed. NF/MODL Voice ID: [id number] Report ID: [id number]
== END 2021-12-07 12:51 | disposition home or self-care (01) | DRG 690 ==
LOC: ER 14:25 → ERHOLD 18:15 → 4TH 22:34
PROVIDERS: ADMIT Internal Medicine; ATTEND Internal Medicine
DX: N10 Acute pyelonephritis (principal); E78.5 Hyperlipidemia, unspecified; N20.0 Calculus of kidney; D50.9 Iron deficiency anemia, unspecified; N18.2 Chronic kidney disease, stage 2 (mild); D63.1 Anemia in chronic kidney disease; E66.01 Morbid (severe) obesity due to excess calories; H40.9 Unspecified glaucoma; D63.8 Anemia in other chronic diseases classified elsewhere; D69.6 Thrombocytopenia, unspecified; K40.20 Bilateral inguinal hernia, without obstruction or gangrene, not specified as recurrent; D72.829 Elevated white blood cell count, unspecified; B96.20 Unspecified Escherichia coli [E. coli] as the cause of diseases classified elsewhere; B96.1 Klebsiella pneumoniae [K. pneumoniae] as the cause of diseases classified elsewhere; R06.03 Acute respiratory distress; Z68.31 Body mass index [BMI] 31.0-31.9, adult; Z90.49 Acquired absence of other specified parts of digestive tract; Z79.82 Long term (current) use of aspirin; Z28.311 Partially vaccinated for COVID-19; Z79.899 Other long term (current) drug therapy; Z20.822 Contact with and (suspected) exposure to COVID-19
CPT/HCPCS: 36415; 71045; 71260; 74177; 80048; 80076; 81003; 81015; 82550; 83605; 83690; 83735; 83880; 84100; 84484; 85025; 85610; 87040; 87077; 87086; 87088; 87186; 87205; 87811; 93005; 96361; 96365; 96366; 96368; 96375; 99285; J1170; J1644; J2270; J2405; J7030; Q9967